=== PATIENT | male | born 1990 | race Caucasian/White ===

== ENCOUNTER 2021-11-08 09:01 | Emergency (ER) | payer BC, OTHER | END 2021-11-08 10:05 | disposition home or self-care (01) | LOC: KA.ED 09:01 | DX: J02.9 Acute pharyngitis, unspecified (principal); Z88.5 Allergy status to narcotic agent; Z20.822 Contact with and (suspected) exposure to COVID-19 | CPT/HCPCS: 87081; 87430; 99283; U0002 ==